=== PATIENT | female | born 1985 | race Hispanic/Latino ===

== ENCOUNTER 2017-10-02 23:06 | Emergency (ER) | payer SELFPAY ==
[2017-10-02 23:26] VITALS: BP 125/83
--- NOTE | 2017-10-03 00:05 | XRay Report ---
FINAL REPORT EXAM: XR ANKLE 2V RT HISTORY: Rt ankle pain post fall TECHNIQUE: AP and lateral views of the right ankle were obtained. FINDINGS: There is no evidence of fracture or dislocation. The ankle mortise is well maintained. There is a small plantar calcaneal spur. IMPRESSION: Plantar calcaneal spur. No acute injury.
--- NOTE | 2017-10-03 00:06 | XRay Report ---
FINAL REPORT EXAM: XR FOOT 2V RT HISTORY: Rt foot pain post fall TECHNIQUE: AP and lateral views of the right foot were submitted. FINDINGS: There is no evidence of fracture or soft tissue injury. There is a small plantar calcaneal spur. IMPRESSION: Plantar calcaneal spur. No acute injury.
[2017-10-03] MEDS ORDERED: ULTRAM PO ONE (04:24)
[2017-10-03] MEDS ORDERED: ULTRAM ONE (04:27)
--- NOTE | 2017-10-03 04:28 | Emergency Department Report ---
ED Lower Extremity HPI - General Chief Complaint: Extremity Injury, Lower Stated Complaint: Right foot Pain Time Seen by Provider: 10/03/17 03:42 Source: patient, EMS Mode of arrival: Wheelchair Limitations: No Limitations, Physical Limitation - History of Present Illness Initial Comments: This is a 32 y.o. female that presents with right ankle pain from fall last night. The injury happened around 2029. 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 She forgot something in her car and thought she was on the last step and missed a step. Her right ankle twisted inward and she fell back to the ground. It hurt so bad she couldn't bear weight. She crawled to vehicle and drove home with left foot and called ambulance for escort to the ER. MD Complaint: ankle injury (right ankle pain, from fall last night) -: Gradual Injury: Ankle: Right (pain and swelling from fall) Type of Injury: inversion Place: other (buddhist) Severity: severe Severity scale (0 -10): 10 Improves With: nothing Worsens With: weight bearing, movement Context: fall Associated Symptoms: able to partially bear weight Treatments Prior to Arrival: cold therapy - Related Data Previous Rx's Medication Instructions Recorded Last Taken Type HYDROcodone/APAP 5-325 [[place] 1 each PO Q6HR PRN #8 tablet 06/21/16 Unknown Rx 5/325] Penicillin Vk [Veetids TAB] 250 mg PO QID #40 tablet 06/21/16 Unknown Rx Ibuprofen 800 mg PO Q6H PRN #20 tablet 10/03/17 Unknown Rx Allergies Allergy/AdvReac Type Severity Reaction Status Date / Time No Known Allergies Allergy Verified 08/08/13 11:28 ED Review of Systems ROS: Stated complaint: Right foot Pain Other details as noted in HPI Constitutional: denies: chills, fever Respiratory: denies: cough, shortness of breath, wheezing Cardiovascular: denies: chest pain, palpitations Gastrointestinal: denies: abdominal pain, nausea, diarrhea Musculoskeletal: arthralgia (right ankle pain with movement). denies: back pain , joint swelling Skin: denies: rash, lesions Neurological: denies: headache, weakness, numbness, paresthesias ED Past Medical Hx - Past Medical History Previous Medical History?: Yes Hx Arthritis: Yes - Surgical History Past Surgical History?: Yes Hx Cholecystectomy: Yes - Social History Smoking Status: Current Every Day Smoker Substance Use Type: None - Medications Home Medications: Home Medications Medication Instructions Recorded Confirmed Last Taken Type HYDROcodone/APAP 5-325 [[place] 1 each PO Q6HR PRN #8 tablet 06/21/16 Unknown Rx 5/325] Penicillin Vk [Veetids TAB] 250 mg PO QID #40 tablet 06/21/16 Unknown Rx Ibuprofen 800 mg PO Q6H PRN #20 tablet 10/03/17 Unknown Rx ED Physical Exam - General Limitations: No Limitations, Physical Limitation General appearance: alert, in no apparent distress - ENT ENT exam: Present: mucous membranes moist - Respiratory Respiratory exam: Present: normal lung sounds bilaterally. Absent: respiratory distress - Cardiovascular Cardiovascular Exam: Present: regular rate, normal rhythm, normal heart sounds. Absent: systolic murmur, diastolic murmur, rubs, gallop - GI/Abdominal GI/Abdominal exam: Present: soft, normal bowel sounds - Expanded Lower Extremity Exam Right Hip exam: Present: normal inspection, full ROM Upper Leg exam: Present: normal inspection, full ROM Knee exam: Present: normal inspection, full ROM Lower Leg exam: Present: normal inspection, full ROM Ankle exam: Present: tenderness, swelling. Absent: full ROM (limited ROM, for pain, ), abrasion, laceration, ecchymosis, deformity, erythema Foot/Toe exam: Present: normal inspection, full ROM Neuro vascular tendon exam: Present: no vascular compromise Gait: Positive: not tested/not observed, unable to bear weight (RLE) - Neurological Exam Neurological exam: Present: alert, oriented X3 - Skin Skin exam: Present: warm, dry, intact, normal color. Absent: rash ED Course Vital Signs 10/02/17 10/03/17 23:21 04:38 Temperature 97.7 F Pulse Rate 95 H Respiratory 20 18 Rate Blood Pressure 125/83 Blood Pressure 125/83 [Right] O2 Sat by Pulse 100 Oximetry ED Lower Extremity MDM - Radiology Data Radiology results: image reviewed IMPRESSION: Plantar calcaneal spur. No acute injury. - Medical Decision Making This is a 32 y.o. female presents with right ankle pain from fall yesterday around 2029. She fell down a step at a buddhist and twisted right ankle inward. She drove home with left foot and called EM because pain was severe. She is unable to bear weight to RLE. Xray of right ankle obtained and read by radiologist. Patient informed of no acute injury and plantar calcaneal spur. Physical exam is susceptible of sprain of right ankle. Acewrap and postop boot applied to right lower extremity. Given tramadal 50 mg po once in ER. Start ibuprofen 800 mg po q6h PRN for pain. RICE. F/U with PCP in 24-72 hours. Critical care attestation.: If time is entered above; I have spent that time in minutes in the direct care of this critically ill patient, excluding procedure time. ED Disposition Clinical Impression: Sprain of right ankle Qualifiers: Encounter type: initial encounter Involved ligament of ankle: unspecified ligament Qualified Code(s): S93.401A - Sprain of unspecified ligament of right ankle, initial encounter Disposition: TO HOME OR SELFCARE Is pt being admited?: No Does the pt Need Aspirin: No Condition: Stable Instructions: Ankle Sprain (ED), Ankle Stirrup Splint (ED), Ankle Exercises ( GEN) Additional Instructions: Rest Use ice or heat on affected area for 20 minutes and off for 2 hours. Take pain medication as needed for pain. Don't drive or operate heavy machinery while taking muscle relaxers because they may cause drowsiness. Follow up with Primary Care Provider. Prescriptions: Ibuprofen 800 mg PO Q6H PRN #20 tablet PRN Reason: Pain Referrals: [facility] [Outside] - 3-5 Days [facility] [Outside] - 3-5 Days [facility] [Outside] - 3-5 Days Time of Disposition: 05:18 Print Language: LIBYAN
== END 2017-10-03 05:33 | disposition home or self-care (01) ==
LOC: ED 23:06
DX: S93.401A Sprain of unspecified ligament of right ankle, initial encounter (principal); F17.200 Nicotine dependence, unspecified, uncomplicated; M19.90 Unspecified osteoarthritis, unspecified site; Z90.49 Acquired absence of other specified parts of digestive tract; W10.9XXA Fall (on) (from) unspecified stairs and steps, initial encounter; Y93.01 Activity, walking, marching and hiking; Y99.8 Other external cause status; Y92.22 Religious institution as the place of occurrence of the external cause

== ENCOUNTER 2019-02-11 15:35 | Emergency (ER) | payer OTHER ==
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
[2019-02-11] MEDS ORDERED: LEVAQUIN PO ONE (16:48)
[2019-02-11] MEDS ORDERED: TYLENOL PO ONE (16:50)
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
[2019-02-11 19:00] VITALS: BP 129/84
== END 2019-02-11 17:34 | disposition home or self-care (01) ==
LOC: ED 15:35
DX: J20.9 Acute bronchitis, unspecified (principal); V89.2XXA Person injured in unspecified motor-vehicle accident, traffic, initial encounter; Y93.89 Activity, other specified; Y92.89 Other specified places as the place of occurrence of the external cause; Y99.8 Other external cause status
CPT/HCPCS: 99283